=== PATIENT | female | born 1950 | race Caucasian/White ===

== ENCOUNTER → 2017-04-18 | Outpatient (CLI) | payer MEDICARE ==
[~2017-04-18] MED LIST: ALEN70TA5 PO; CA C1TAB60 PO; CHOL-29 PO
== END | disposition home or self-care (01) ==
LOC: CARD 12:10
PROVIDERS: ATTEND Psychiatry & Neurology Neurology
DX: G40.209 Localization-related (focal) (partial) symptomatic epilepsy and epileptic syndromes with complex partial seizures, not intractable, without status epilepticus (principal)
CPT/HCPCS: 95819

== ENCOUNTER → 2018-08-10 | Outpatient (CLI) | payer MEDICARE, OTHER | END | disposition home or self-care (01) | LOC: CFH 14:14 | DX: Z12.2 Encounter for screening for malignant neoplasm of respiratory organs (principal); Z87.891 Personal history of nicotine dependence; R91.1 Solitary pulmonary nodule; I71.2 Thoracic aortic aneurysm, without rupture | CPT/HCPCS: G0297 ==

== ENCOUNTER 2018-11-30 06:56 | Outpatient (CLI) | payer MEDICARE ==
[~2018-11-30 06:56] MED LIST changes: -ALEN70TA5 PO; +ALEN70TA6 PO
== END 2018-11-30 23:59 | disposition home or self-care (01) ==
LOC: CVU 06:56 → CFH 23:59
PROVIDERS: ATTEND Internal Medicine Cardiovascular Disease
DX: I08.3 Combined rheumatic disorders of mitral, aortic and tricuspid valves (principal); I71.2 Thoracic aortic aneurysm, without rupture; J43.9 Emphysema, unspecified; Z87.891 Personal history of nicotine dependence
CPT/HCPCS: 0399T; 78452; 93017; 93306; 93978; 94060; 94726; 94729; A9502

== ENCOUNTER → 2019-12-06 | Outpatient (CLI) | payer MEDICARE | END | disposition home or self-care (01) | LOC: CFH 12:47 | PROVIDERS: ATTEND Internal Medicine | DX: Z12.2 Encounter for screening for malignant neoplasm of respiratory organs (principal); R91.1 Solitary pulmonary nodule; J43.2 Centrilobular emphysema; F17.211 Nicotine dependence, cigarettes, in remission | CPT/HCPCS: G0297 ==

== ENCOUNTER → 2020-03-24 | Outpatient (CLI) | payer MEDICARE | END | disposition home or self-care (01) | LOC: CFH 13:23 | PROVIDERS: ATTEND Internal Medicine Cardiovascular Disease | DX: I35.8 Other nonrheumatic aortic valve disorders (principal); I70.0 Atherosclerosis of aorta | CPT/HCPCS: 93306 ==

== ENCOUNTER → 2020-09-01 | Outpatient (CLI) | payer MEDICARE ==
[~2020-09-01] MED LIST changes: -ALEN70TA6 PO; +ALEN70TA66 PO
== END | disposition home or self-care (01) ==
LOC: CFH 13:56
PROVIDERS: ATTEND Family Medicine
DX: Z12.31 Encounter for screening mammogram for malignant neoplasm of breast (principal); N63.11 Unspecified lump in the right breast, upper outer quadrant
CPT/HCPCS: 76641; 77063; 77067

== ENCOUNTER 2020-09-30 07:32 | Outpatient (CLI) | payer MEDICARE ==
[2020-09-30] MEDS ORDERED: SODIUM BICARBONATE 4.2%, 5ML ONE (09:02)
[2020-09-30] MEDS ORDERED: LIDOCAINE 1%, 20ML ONE (09:02)
== END 2020-09-30 23:59 | disposition home or self-care (01) ==
LOC: CFH 07:32
PROVIDERS: ATTEND Internal Medicine
DX: N63.11 Unspecified lump in the right breast, upper outer quadrant (principal); F12.90 Cannabis use, unspecified, uncomplicated; Z88.1 Allergy status to other antibiotic agents; Z88.2 Allergy status to sulfonamides; Z79.899 Other long term (current) drug therapy; Z72.89 Other problems related to lifestyle; Z82.5 Family history of asthma and other chronic lower respiratory diseases
CPT/HCPCS: 19083; 88305; 77065